=== PATIENT | female | born 1985 | race Caucasian/White ===

== ENCOUNTER 2021-08-20 17:28 | Inpatient (IN) | payer MEDICAID, SELFPAY ==
--- NOTE | 2021-08-20 18:15 | PC.NURSE ---
pt not in waiting room
[2021-08-20 18:30] VITALS: BP 176/93; PULSE 79; RESP 18; TEMP 36.5; O2SAT 100; BMI 18.0
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
--- NOTE | 2021-08-20 19:23 | PC.NURSE ---
Pt states that she is homeless and manic. States that she needs help getting into a facility. Pt denies drugs/ETOH. No SI or HI
[2021-08-20 19:41] LABS: Basophils # 0.1 10^3/uL (0.0-0.1); Basophils % 0.9 %; Eosinophils # 0.1 10^3/uL (0.0-0.8); Eosinophils % 0.5 %; Lymphocytes # 1.7 10^3/uL (0.8-4.8); Lymphocytes % 14.3 %; Mean Corpuscular HGB Conc 34.9 g/dL (30.0-36.0); Mean Corpuscular Hemoglobin 35.4 pg (28.0-34.0); Mean Corpuscular Volume 101.4 fl (81-99); Mean Platelet Volume 11.6 fL (7.4-10.4); Monocytes # 0.6 10^3/uL (0.2-0.9); Nucleated Red Blood Cells % 0 %; Platelet Count 304 10^3/cmm (130-400); Red Blood Count 4.24 10^6/uL (4.1-5.3); Red Cell Distribution Width 13.3 % (12.1-15.1); White Blood Count 11.6 10^3/uL (4.0-10.0)
[2021-08-20 19:45] LABS: HCG Qualitative Urine. Negative (Negative)
[2021-08-20] MEDS: tetanus-dipt-pertussis 0.5 mL SDV IM (19:46)
[2021-08-20] MEDS: LORazepam 0.5 mg Tablet PO ×2 (19:57→20:00)
[2021-08-20 20:14] LABS: Alanine Aminotransferase 70 U/L (0-33); Albumin Level 4.6 g/dL (3.5-5.2); Alkaline Phosphatase 273 IU/L (35-105); Anion Gap 15.8 (5-19); Aspartate Amino Transferase 108 U/L (0-32); Blood Urea Nitrogen 11 mg/dL (6-20); Calcium 9.6 mg/dL (8.5-10.5); Carbon Dioxide 27 mmol/L (22-29); Chloride 102 mmol/L (98-107); Globulin 2.8 g/dL (1.3-4.6); Glomerular Filtration Rate 139.6 mL/min (90-130); Glucose 136 mg/dL (65-115); Osmolality Calculated 293 mOsm/kg (285-295); Potassium 3.8 mmol/L (3.5-5.1); Sodium 141 mmol/L (136-145); Thyroid Stimulating Hormone 1.55 uIU/mL (0.27-4.20); Total Bilirubin 0.9 mg/dL (0.15-1.2); Total Protein 7.4 g/dL (6.6-8.7)
[2021-08-20 20:15] LABS: Acetaminophen < 5.0 ug/mL (10-30); Alcohol Level < 10 mg/dL (0-10); Salicylate < 0.3 mg/dL (3-10)
[2021-08-20] MEDS: nicotine 14 mg Patch 1 PATCH TRANSDERMA (20:33)
--- NOTE | 2021-08-20 20:53 | PC.NURSE ---
Pt anxious, crying after being told that she can not leave. Pt continues to verbalize she is not SI or HI
[2021-08-20 22:30] VITALS: BP 168/114; PULSE 75; RESP 18; TEMP 37.2; O2SAT 99
--- NOTE | 2021-08-20 22:40 | PC.NURSE ---
Pt resting quietly. Belongings outside of room. Sitter at bedside
--- NOTE | 2021-08-21 01:54 | PC.NURSE ---
aid took pt's B/P on left arm first, reading was 168/114 aid reassessed pt's B/P on right arm, reading was 165/115 charge nurse notified/sanjeev
[2021-08-21 06:00] VITALS: BP 171/103; PULSE 67; RESP 15; TEMP 36.7; O2SAT 99
--- NOTE | 2021-08-21 06:38 | PC.NURSE ---
charge nurse present/notified of pt blood pressure reading
[2021-08-21 08:25] LABS: Bilirubin Urine 1+ (Negative); Blood Urine Neg (Negative); Glucose Urine UA Norm (Normal); Ketones Urine 1+ (Negative); Nitrate Urine Negative (Negative); Protein Urine Trace (Negative); Urine Appearance Turbid (CLEAR); Urine Color Yellow (Yellow); pH Urine 5 (5-7)
[2021-08-21 08:26] LABS: Add Urine Culture? No; Add Urine Microscopic? YES; Amorphous Sediment Urine 2+ /hpf; Bacteria Urine 1+ /hpf; Leukocyte Esterase Urine Trace (Negative); Squamous Epithelial Cell Urine 25-40 /hpf (0-5); Urobilinogen Urine 4 mg/dL (Negative)
[2021-08-21] MEDS: hyDROXYzine 25 mg Capsule 50 MG PO ×2 (10:18→22:48)
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
[2021-08-21] MEDS: acetaminophen 325 mg Tablet 650 MG PO ×2 (10:31→22:48)
[2021-08-21] MEDS: nicotine 21 mg Patch 1 PATCH TRANSDERMA (10:31)
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
[2021-08-21 14:00] VITALS: BP 156/99; PULSE 73; RESP 18; TEMP 36.2; O2SAT 96
--- NOTE | 2021-08-21 17:41 | PC.NURSE ---
Patient requested to move to opposite side of unit due to noise. Accommodated her request. She stayed in her room the majority of the day and slept. She got up for meals and after supper was interactive with other patients and stated, that's the first time in months I've slept in a bed. I've been creekin' it up for months. Requested her bible from her belongings.
[2021-08-21 22:00] VITALS: RESP 17
[2021-08-22 06:00] VITALS: BP 140/80; PULSE 56; RESP 14; TEMP 36.8; O2SAT 96
[2021-08-22] MEDS: acetaminophen 325 mg Tablet 650 MG PO ×2 (10:33→21:08)
[2021-08-22] MEDS: nicotine 21 mg Patch 1 PATCH TRANSDERMA (10:33)
[2021-08-22] MEDS: ARIPiprazole 10 mg Tablet PO (10:34)
[2021-08-22] MEDS: OLANZapine 5 mg ODT PO (10:34)
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
[2021-08-22 13:50] VITALS: BP 150/91; PULSE 68; RESP 16; TEMP 36.7; O2SAT 98
--- NOTE | 2021-08-22 14:20 | P.NPUPN_ITS ---
Subjective NPU Subjective: Interval history: Patient presents today reporting that he is doing okay with the Abilify. She reports some concern about whether she is going to have to be here for the full 96 hours. But we continue to discuss that the senior living requested that she be stable on medication not just get a prescription. She continued to endorse anxiety and we reviewed the different agents that she has had exposure to. We then discussed the risks, benefits and alternatives of a trial Neurontin and she understood and agreed to proceed as is documented in this note. Mental Status Exam MSE Comments: This is an underweight, white female, with limited dress, grooming, and eye contact. No abnormal movements except for mild psychomotor agitation. Cooperative with exam in mild distress. Speech was increased rate and normal volume. Mood described as still worried about being here and my dog; affect congruent. Thought process, organized. Thought content: patient denied any suicidal or homicidal ideation, there were no delusions reported or noted, patient denied any auditory or visual hallucinations. Attention, concentration, and memory appear intact but were not formally tested. He is alert and oriented times three. Insight and judgment appear fair, impulse control is limited. Vitals/I&O/Wt Last Vital Signs Temp 98.3 F 08/22/21 06:00 Pulse 56 L 08/22/21 06:00 Resp 14 08/22/21 06:00 BP 140/80 08/22/21 06:00 Pulse Ox 96 08/22/21 06:00 Data NPU : 08/20/21 19:30 08/20/21 19:30 A&P Additional A&P Information (1) ADD (attention deficit disorder): (2) Bipolar disorder: (3) PTSD (post-traumatic stress disorder): (4) Borderline personality disorder: Additional A&P Information This is a 35-year-old, white female, with post-traumatic stress disorder, and bipolar disorder, unspecified, who presents off medication but open to a trial of medication to try to get connected with senior living services. RECOMMENDATION AND PLAN: 1. Continue current medication. Abilify 10 mg p.o. every morning and Neurontin 100 mg p.o. 3 times daily. 2. Encourage individual, group, and milieu therapy. 3. Continue q-15 minute checks for safety. 4. Encourage sober living treatment after discharge, at the highest level of care, to which she is willing to commit. Involuntary Hold Information 96 Hour Hold: 96 Hour Involuntary Admission: Yes 96 Hour Hold Ending Date: 08/24/21 96 Hour Hold Ending Time: 20:46 Attestations NPU Medical Necessity Statement*: Inpatient hospitalization is medically necessary and the clinically appropriate intervention, at this time. We will monitor medications and make changes as indicated. . Likely length of stay is 2-4 days. Coding Level of Care Code Acute Brick Or Block Maker for Salazar Quijano
[2021-08-22 20:05] VITALS: RESP 16
[2021-08-22] MEDS: ondansetron 4 MG Tablet PO (21:04)
[2021-08-22] MEDS: hyDROXYzine 25 mg Capsule 50 MG PO (21:04)
--- NOTE | 2021-08-22 21:49 | PC.NURSE ---
Patient in bed at start of shift. A&OX4, calm and cooperative. C/o general malaise and nausea since receiving COVID vaccine today. Took PRN Tylenol and Zofran to good effect at 2107. C/o anxiety at that time as well and took PRN Vistaril to good effect. Patient resting in bed with eyes closed at this time.
[2021-08-23 06:00] VITALS: BP 140/89; PULSE 82; RESP 16; TEMP 37.4; O2SAT 96
[2021-08-23] MEDS: acetaminophen 325 mg Tablet 650 MG PO ×2 (07:54→15:58)
[2021-08-23] MEDS: ondansetron 4 MG Tablet PO (07:55)
[2021-08-23] MEDS: ARIPiprazole 10 mg Tablet PO (07:55)
[2021-08-23] MEDS: hyDROXYzine 25 mg Capsule 50 MG PO ×2 (08:22→21:29)
[2021-08-23] MEDS: gabapentin 100 mg Capsule PO ×3 (09:18→20:24)
--- NOTE | 2021-08-23 12:01 | W.PM.NPUPNS ---
Subjective NPU Subjective: Interval history: She feels like the medications are working. She said that she went off the medication cold turkey and that was obviously a mistake. She has limited insight into how bad she was when she came here. She did not really think she was manic. However in retrospect she agreed that she probably was. She is adamant that she will continue medication. She certainly has coming down and is less manic. She still has some push of speech but not dramatically out of normal limits and it could be her normal. [facility] is [facility]. She did ask about the emotional support animal and will defer that to social work who is working on that. Mental Status Exam MSE Comments: This is an underweight, white female, in hospital scrubs with good eye contact. No abnormal movements except for mild psychomotor agitation. Cooperative with exam. Speech was increased rate and normal volume. Mood described good; affect congruent. Thought process, organized. Thought content: patient denied any suicidal or homicidal ideation, there were no delusions reported or noted, patient denied any auditory or visual hallucinations. Attention, concentration, and memory appear intact but were not formally tested. He is alert and oriented times three. Insight and judgment appear fair, impulse control is improved. Vitals/I&O/Wt Last Vital Signs Temp 99.3 F 08/23/21 06:00 Pulse 82 08/23/21 06:00 Resp 16 08/23/21 06:00 BP 140/89 08/23/21 06:00 Pulse Ox 96 08/23/21 06:00 Data NPU : 08/20/21 19:30 08/20/21 19:30 A&P Assessment and plan (1) ADD (attention deficit disorder): Status: Acute (2) Bipolar disorder: Status: Acute (3) PTSD (post-traumatic stress disorder): Status: Acute (4) Borderline personality disorder: Status: Acute Additional A&P Information (1) ADD (attention deficit disorder): (2) Bipolar disorder: (3) PTSD (post-traumatic stress disorder): (4) Borderline personality disorder: Additional A&P Information This is a 35-year-old, white female, with post-traumatic stress disorder, and bipolar disorder, unspecified, who presents off medication but open to a trial of medication to try to get connected with snf services. RECOMMENDATION AND PLAN: 1. Continue current medication. Abilify 10 mg p.o. every morning and Neurontin 100 mg p.o. 3 times daily. 2. Encourage individual, group, and milieu therapy. 3. Continue q-15 minute checks for safety. 4. Encourage sober living treatment after discharge, at the highest level of care, to which she is willing to commit. 5. Anticipate discharge tomorrow Involuntary Hold Information 96 Hour Hold: 96 Hour Involuntary Admission: Yes 96 Hour Hold Ending Date: 08/24/21 96 Hour Hold Ending Time: 20:46 Attestations NPU Medical Necessity Statement*: Inpatient hospitalization is medically necessary and the clinically appropriate intervention at this time. We will initiate medications and make changes as indicated. Coding Level of Care Code Acute Material Lister for [facility] Fwd Diagnoses ADD (attention deficit disorder) F98.8 Bipolar disorder F31.9 PTSD (post-traumatic stress disorder) F43.10 Borderline personality disorder F60.3
[2021-08-23 14:00] VITALS: BP 158/100; PULSE 75; RESP 16; TEMP 36.9; O2SAT 100
[2021-08-23] MEDS: nicotine 2 mg Gum BUCCAL (15:51)
[2021-08-23] MEDS: docusate sodium 100 mg Capsule PO (18:38)
[2021-08-23 19:53] VITALS: BP 161/108; PULSE 84; RESP 16; O2SAT 99
[2021-08-23] MEDS: trazodone 50 mg Tablet PO (20:24)
[2021-08-23] MEDS: ibuprofen 600 mg Tablet PO (20:27)
[2021-08-23] MEDS: neomycin-poly-bacitracin oint 28 gm 1 APPLIC TOPICAL (20:27)
[2021-08-23] MEDS: OLANZapine 5 mg ODT PO (22:36)
--- NOTE | 2021-08-23 22:36 | PC.NURSE ---
Addendum entered by Arie Wall RN 08/23/21 23:55: At 23:12 patient continued to be anxious and agitated with B/P continuing to be elevated at 158/103. 5mg Haldol PO given. will continue to monitor. Original Note: zyprexa zydus 5mg PO given for farhat / anxiety / agitation.
[2021-08-23] MEDS: haloperidol 5 mg Tablet PO (23:12)
[2021-08-24] MEDS: LORazepam 2 mg/mL INJ 1 mL IM (01:08)
--- NOTE | 2021-08-24 01:09 | PC.NURSE ---
Atavan 2mg IM given for continued Anxiety / agitation / psychosis due to ineffectiveness of previous doses of zyprexa and haldol.
[2021-08-24] MEDS: acetaminophen 325 mg Tablet 650 MG PO (08:37)
[2021-08-24] MEDS: ARIPiprazole 10 mg Tablet PO (08:37)
[2021-08-24] MEDS: gabapentin 100 mg Capsule PO (08:38)
[2021-08-24] MEDS: nicotine 21 mg Patch 1 PATCH TRANSDERMA (09:06)
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
[2021-08-24 11:56] VITALS: BP 152/106; PULSE 86
[2021-08-24 12:12] VITALS: BP 152/106
[2021-08-24] MEDS: cloNIDine 0.1 mg Tablet PO (12:12)
--- NOTE | 2021-08-24 12:48 | NPU.GN ---
[facility] Unit Group Topic: Coping skills Luis General Mood of Group: Patient did not attend group
[2021-08-24 13:31] VITALS: BP 152/106
[2021-08-24 13:33] VITALS: BP 141/90
[2021-08-24 13:34] VITALS: BP 141/90
== END 2021-08-24 14:08 | disposition home or self-care (01) | DRG 885 ==
LOC: ER 18:41 → NP 22:19
PROVIDERS: Admitting Provider Psychiatry & Neurology Psychiatry; Emergency Provider Emergency Medicine; Visit Provider Psychiatry & Neurology Psychiatry
DX: F31.9 Bipolar disorder, unspecified (principal); Z86.16 Personal history of COVID-19; Z59.00 Homelessness unspecified; F15.90 Other stimulant use, unspecified, uncomplicated; F98.8 Other specified behavioral and emotional disorders with onset usually occurring in childhood and adolescence; F43.10 Post-traumatic stress disorder, unspecified; F60.3 Borderline personality disorder; Z91.14 Patient's other noncompliance with medication regimen
CPT/HCPCS: 80053; 80307; 81001; 81025; 84443; 85025; 90471; 90715; 96372; 97150; 97165; 99285; J2060; Q0162